=== PATIENT | male | born 1980 | race Caucasian/White ===

== ENCOUNTER 2021-11-06 17:14 | Emergency (ER) | payer OTHER, BC, SELFPAY ==
--- NOTE | ~2021-11-06 | XR_ITS ---
EXAMINATION: XR ankle LT min 3V, XR foot LT min 3V DATE: 11/06/2021 17:36 INDICATION: Lateral left ankle and dorsal left foot pain post injury TECHNIQUE: 1. Anteroposterior, mortise, additional oblique and lateral view of the left ankle were obtained. 2. Dorsoplantar, two oblique and lateral views of the left foot were obtained. COMPARISON: None. FINDINGS: Alignment of the left foot and ankle is normal. No fracture or osteochondral lesion. Joint spaces are well maintained. No ankle joint effusion. Mild soft tissue swelling at the dorsolateral aspect of th e hindfoot. IMPRESSION: 1. No osseous abnormality at the left foot or ankle. Reviewed, dictated and finalized at location A. TEST ENGINEER IMPRESSION: 1. No osseous abnormality at the left foot or ankle.
[2021-11-06 17:16] VITALS: BP 162/104; PULSE 103; RESP 18; TEMP 35.9; O2SAT 97
--- NOTE | 2021-11-06 17:22 | ED.LOWEXIN ---
HPI - Extremity Injury (Lower) General Chief Complaint: Extremity Injury, Lower Stated Complaint: left foot pain Time Seen by Provider: 11/06/21 17:15 History of Present Illness HPI Narrative: 40-year-old male presents the emergency room with complaints of left ankle and foot pain. 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 Patient is ambulatory. Related Data Allergies Allergy/AdvReac Type Severity Reaction Status Date / Time Beta-Blockers AdvReac Other Verified 11/06/21 17:19 (Beta-Adrenergic Bloc Review of Systems Review of Systems: CONSTITUTIONAL: Denies fever, chills, or sweats. EYES: Denies visual changes, redness, or discharge. ENT: Denies rhinorrhea, congestion, sore throat, or otalgia. CARDIOVASCULAR: Denies chest pain, palpitations, or edema. RESPIRATORY: Denies cough or dyspnea. GASTROINTESTINAL: Denies abdominal pain, nausea, vomiting, or diarrhea. GENITOURINARY: Denies dysuria or hematuria. SKIN: Denies rash or itching. MUSCULOSKELETAL: Denies back pain, joint pain, or myalgia. Per HPI: left ankle and left foot pain NEUROLOGIC: Denies headache, numbness, dizziness, or weakness. PSYCHIATRIC: Denies anxiety or depression. Exam Narrative: GENERAL: Well-appearing, well-nourished, and in no acute distress. HEAD: Normocephalic, atraumatic. EYES: PERRLA and EOMI. ENT: Nares clear, no rhinorrhea or epistaxis. Mucous membranes moist. Oropharynx without tonsillar hypertrophy exudate or other lesions. Bilateral TMs pearly zavala nonbulging NECK: Supple. No adenopathy or masses. No carotid bruits or JVD CHEST: Clear to auscultation. No respiratory distress. No wheezes rales or rhonchi HEART: Regular rate and rhythm. No murmur heard. Normal peripheral pulses. ABDOMEN: Soft, nontender, nondistended, normal active bowel sounds. EXTREMITIES: Normal range of motion. No edema. left ankle: tenderness over the talofibular ligament and talus; No obvious bony abnormality, No STS, No ecchymosis, no joint laxity SKIN: Warm, dry, no rash. NEURO: No focal deficits. Alert and oriented x3. PSYCH: Normal mood and affect. Course Vital Signs Vital signs: Vital Signs Temperature 35.9 C L 11/06/21 17:16 Pulse Rate 103 H 11/06/21 17:16 Respiratory Rate 18 11/06/21 17:16 Blood Pressure 162/104 H 11/06/21 17:16 Pulse Oximetry 97 11/06/21 17:16 Temperature 35.9 C L 11/06/21 17:16 Pulse Rate 103 H 11/06/21 17:16 Respiratory Rate 18 11/06/21 17:16 Blood Pressure 162/104 H 11/06/21 17:16 Pulse Oximetry 97 11/06/21 17:16 MDM - Extremity Injury (Lower) MDM Narrative Medical decision making narrative: Imaging of the left foot and left ankle show no acute bony abnormalities. Suspect a left ankle sprain. Imaging Data Radiologist's impression: Impressions Ankle X-Ray 11/06/21 17:45 IMPRESSION: 1. No osseous abnormality at the left foot or ankle. Foot X-Ray 11/06/21 17:45 IMPRESSION: 1. No osseous abnormality at the left foot or ankle. Discharge Plan Discharge Clinical Impression: Ankle sprain and strain Patient Disposition: Home, Self-Care Condition: Stable Instructions: Antibiotic Form Additional Instructions: Keep extremity elevated. May ice ankle for the first 48 hours, and then switch to heat. May take Tylenol or ibuprofen as needed for pain. Follow-up with primary care physician in 6 days. Follow-up/Referrals: PHYSICIAN NOT ON STAFF,NONSTAFF [Primary Care Provider] - Stand Alone Forms: Work/School Release IP Time of Disposition: 18:22
== END 2021-11-06 18:33 | disposition home or self-care (01) ==
PROVIDERS: Emergency Provider Nurse Practitioner Family
DX: S93.402A Sprain of unspecified ligament of left ankle, initial encounter (principal); S96.912A Strain of unspecified muscle and tendon at ankle and foot level, left foot, initial encounter; X50.0XXA Overexertion from strenuous movement or load, initial encounter
CPT/HCPCS: 73610; 73630; 99283